=== PATIENT | male | born 1965 | race Caucasian/White ===

== ENCOUNTER 2017-07-27 19:14 | Emergency (ER) | payer OTHER ==
[~2017-07-27] VITALS: Ht 185.4 cm; Wt 83.9 kg
[2017-07-27] MEDS ORDERED: IBUPROFEN800 MG PO (20:06)
== END 2017-07-27 20:33 | disposition home or self-care (01) ==
LOC: ER 19:14
DX: S76.911A Strain of unspecified muscles, fascia and tendons at thigh level, right thigh, initial encounter (principal); X50.0XXA Overexertion from strenuous movement or load, initial encounter; Y93.89 Activity, other specified; Y92.89 Other specified places as the place of occurrence of the external cause; Y99.8 Other external cause status

== ENCOUNTER 2018-01-13 13:32 | Emergency (ER) | payer OTHER ==
[~2018-01-13] VITALS: Ht 185.4 cm; Wt 83.9 kg
[~2018-01-13 13:32] MED LIST: IBUPROFEN800 MG PO
== END 2018-01-13 15:44 | disposition home or self-care (01) ==
LOC: ER 13:32
DX: R20.0 Anesthesia of skin (principal); R20.2 Paresthesia of skin

== ENCOUNTER 2018-03-22 20:14 | Emergency (ER) | payer OTHER ==
[~2018-03-22] VITALS: Ht 185.4 cm; Wt 83.9 kg
== END 2018-03-22 21:04 | disposition left against medical advice (07) ==
LOC: ER 20:14
DX: Z53.20 Procedure and treatment not carried out because of patient's decision for unspecified reasons (principal)

== ENCOUNTER 2022-03-24 08:18 | Outpatient (CLI) | payer OTHER | END 2022-03-24 08:32 | disposition home or self-care (01) | LOC: TOM 08:18 | DX: R10.9 Unspecified abdominal pain (principal) ==